=== PATIENT | female | born 2000 | race Caucasian/White ===

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

== ENCOUNTER 2023-01-21 10:28 | Emergency (ER) | payer BC, SELFPAY ==
--- NOTE | ~2023-01-21 | XR_ITS ---
EXAMINATION: XR foot RT min 3V DATE: 01/21/2023 10:56 INDICATION: Right foot pain. TECHNIQUE: 4 views of right foot were obtained. COMPARISON: None. FINDINGS: Bone alignment is normal. No fracture. Joint spaces are normal. IMPRESSION: 1. Normal right foot. Reviewed, dictated and finalized at location A. 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 Normal right foot.
[2023-01-21 10:34] VITALS: BP 121/69; PULSE 86; RESP 20; TEMP 36.7; O2SAT 100
--- NOTE | 2023-01-21 13:01 | ED.LOWEXIN ---
HPI - Extremity Injury (Lower) General Chief Complaint: Extremity Injury, Lower Stated Complaint: foot injury Time Seen by Provider: 01/21/23 12:44 History of Present Illness HPI Narrative: Patient is a 22-year-old female presenting with right foot pain. States that she may have injured it sometime last week. States that she woke up 1 morning and had pain when she stood on it. No swelling or redness. No fevers. No further injuries or complaints. Related Data Home Medications Medication Instructions Recorded Confirmed multivitamin 1 tablet PO DAILY 08/20/19 05/20/22 naproxen sodium 220 mg capsule 220 mg PO BID PRN 08/14/21 05/20/22 (Aleve) Allergies Allergy/AdvReac Type Severity Reaction Status Date / Time meperidine Allergy Severe Swelling Verified 01/21/23 11:15 of Lip/Tongue/Throat MEPERIDINE HCL Allergy Severe Swelling Uncoded 01/21/23 11:15 of Lip/Tongue/Throat Review of Systems Review of Systems: All systems reviewed & are unremarkable except as noted in HPI and below PMFSH Past Medical History Medical History Acid reflux Anxiety Anxiety Arthralgia Arthralgia of hip, left Arthralgia of hip, right Arthralgia of knee, left Arthralgia of knee, right BMI 27.0-27.9,adult Broken finger Chronic right hip pain Depression screening Hip impingement syndrome History of scoliosis Left hip pain Left low back pain Light headedness Scoliosis Scoliosis Wellness examination Surgical History Surgical History H/O hand surgery History of dental surgery Family History Family History Father Diabetes mellitus Family history of hypercholesterolemia Hypertension Mother Diabetes mellitus Family history of hypercholesterolemia Unknown Lung disease Social History Social History Smoking status: Never smoker Alcohol intake: never Substance use: never Lack of Transportation: No Lack of Food: Never True Current Housing: I Have Housing Concerned About Future Housing: No Difficulty Paying Gas/Electric Bills: No Difficulty Paying for Meds: No Education: High School Diploma/GED Living arrangements: with family Occupation/Education: student Gender identity (if verbalized by the patient): Female Sexual Orientation (if Verbalized by the Patient): Straight or Heterosexual Spiritual care concerns: No Exam Narrative: GENERAL: Well-appearing, In no acute distress HEAD: Normocephalic, atraumatic. EYES: PERRLA and EOMI. ENT: grossly unremarkable NECK: Supple. CHEST: No respiratory distress. HEART: Regular rate and rhythm. Normal peripheral pulses. EXTREMITIES: no swelling or redness of the right foot, no tenderness, no bruising, DP pulse 2 + SKIN: Warm, dry NEURO: Alert and oriented x3. PSYCH: Normal mood and affect. Course Vital Signs Vital signs: Vital Signs Temperature 98.0 F 01/21/23 10:34 Pulse Rate 86 01/21/23 10:34 Respiratory Rate 20 01/21/23 10:34 Blood Pressure 121/69 01/21/23 10:34 Pulse Oximetry 100 01/21/23 10:34 Oxygen Delivery Room Air 01/21/23 10:34 Temperature 98.0 F 01/21/23 10:34 Pulse Rate 86 01/21/23 10:34 Respiratory Rate 20 01/21/23 10:34 Blood Pressure 121/69 01/21/23 10:34 Pulse Oximetry 100 01/21/23 10:34 Oxygen Delivery Room Air 01/21/23 10:34 MDM - Extremity Injury (Lower) MDM Narrative Medical decision making narrative: 22-year-old female presenting with right foot pain. Vital stable. Exam is unremarkable. X-ray reveals no acute abnormalities. Advised Tylenol and ibuprofen for pain control. Recommend PCP follow-up. Appropriate return precautions given. Discharged in stable condition. Differential Diagnosis Differenti
== END 2023-01-21 14:02 | disposition home or self-care (01) ==
PROVIDERS: Emergency Provider Emergency Medicine; PCP Family Medicine
DX: M79.671 Pain in right foot (principal); F41.9 Anxiety disorder, unspecified
CPT/HCPCS: 73630; 99283

== ENCOUNTER 2023-04-09 17:13 | Outpatient (CLI) | payer BC, SELFPAY ==
--- NOTE | ~2023-04-09 | XR_ITS ---
EXAMINATION: XR lumbar spine min 4V DATE: 04/09/2023 17:31 INDICATION: Scoliosis, unspecified TECHNIQUE: Anteroposterior, lateral, and bilateral oblique views of the lumbar spine, and cone-down l ateral view of the lumbosacral junction were obtained. COMPARISON: 12/25/2018 FINDINGS: There are 9 degrees a stable lumbar levocurvature. Bone alignment is normal. There is no fr acture. The vertebral body heights and intervertebral disc spaces are normal. IMPRESSION: 1. Stable mild lumbar levocurvature without acute findings. Reviewed, dictated and finalized at location F. 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
--- NOTE | ~2023-04-09 | XR_ITS ---
EXAMINATION: XR thoracic spine 3V DATE: 04/09/2023 17:31 INDICATION: Scoliosis, unspecified TECHNIQUE: AP, lateral and lateral swimmer's views of the thoracic spine were obtained. COMPARISON: 12/25/2018 FINDINGS: No fracture, dislocation, or subluxation. The vertebral body heights, alignment, and interv ertebral disc spaces are normal. There are 5 degrees of thoracic dextrocurvature. The paravertebral s oft tissues are unremarkable. IMPRESSION: 1. Mild thoracic dextrocurvature without acute findings. Reviewed, dictated and finalized at location F. [employer]
== END 2023-04-09 17:14 | disposition home or self-care (01) ==
LOC: ANHIMG 17:14
PROVIDERS: PCP Family Medicine; Visit Provider Physician Assistant
DX: M43.8X4 Other specified deforming dorsopathies, thoracic region (principal); M43.8X6 Other specified deforming dorsopathies, lumbar region
CPT/HCPCS: 72072; 72110

== ENCOUNTER 2023-05-03 18:12 | Emergency (ER) | payer BC, SELFPAY ==
[2023-05-03 18:55] VITALS: BP 105/67; PULSE 110; RESP 20; TEMP 37.7; O2SAT 100
[2023-05-03 19:46] LABS: Influenza A QL RT-PCR Negative (Negative); Influenza B QL RT-PCR Positive (Negative); RSV RNA, RT-PCR Negative (Negative); SARS-CoV-2 RNA PCR Negative (Negative)
--- NOTE | 2023-05-03 20:16 | ED.URI ---
HPI - URI/Sore Throat General Chief Complaint: Upper Respiratory Infection Stated Complaint: URI, headache, congestion Time Seen by Provider: 05/03/23 20:16 Source: patient Mode of arrival: ambulatory Limitations: no limitations History of Present Illness HPI Narrative: This is a 22-year-old female that presents to the emergency department for cold symptoms present over the last 2 days. Reports fevers, myalgias, fatigue, cough, and congestion. Reports positive sick contacts at work. Related Data Home Medications Medication Instructions Recorded Confirmed multivitamin 1 tablet PO DAILY 08/20/19 04/09/23 naproxen sodium 220 mg capsule 220 mg PO BID PRN 08/14/21 04/09/23 (Aleve) Allergies Allergy/AdvReac Type Severity Reaction Status Date / Time meperidine Allergy Severe Swelling Verified 04/09/23 16:30 of Lip/Tongue/Throat MEPERIDINE HCL Allergy Severe Swelling Uncoded 04/09/23 16:30 of Lip/Tongue/Throat Review of Systems Review of Systems: CONSTITUTIONAL: Reports fever ENT: Reports congestion RESPIRATORY: Reports cough All systems reviewed & are unremarkable except as noted in HPI and below PMFSH Past Medical History Medical History Acid reflux Anxiety Anxiety Arthralgia Arthralgia of hip, left Arthralgia of hip, right Arthralgia of knee, left Arthralgia of knee, right BMI 27.0-27.9,adult Broken finger Chronic right hip pain Depression screening Hip impingement syndrome History of scoliosis Left hip pain Left low back pain Light headedness Scoliosis Scoliosis Wellness examination Surgical History Surgical History H/O hand surgery History of dental surgery Family History Family History Father Diabetes mellitus Family history of hypercholesterolemia Hypertension Mother Diabetes mellitus Family history of hypercholesterolemia Unknown Lung disease Social History Social History Smoking status: Never smoker Alcohol intake: never Substance use: never Lack of Transportation: No Lack of Food: Never True Current Housing: I Have Housing Concerned About Future Housing: No Difficulty Paying Gas/Electric Bills: No Difficulty Paying for Meds: No Education: High School Diploma/GED Living arrangements: with family Occupation/Education: student Gender identity (if verbalized by the patient): Female Sexual Orientation (if Verbalized by the Patient): Straight or Heterosexual Spiritual care concerns: No Exam Narrative: GENERAL: Well-appearing, well-nourished, and in no acute distress. HEAD: Normocephalic, atraumatic. EYES: EOMI. ENT: Nares clear, no rhinorrhea or epistaxis. Mucous membranes moist. Oropharynx without tonsillar hypertrophy exudate or other lesions. Bilateral TMs pearly guzman non-bulging NECK: Supple. No adenopathy or masses. CHEST: Clear to auscultation. No respiratory distress. No wheezes rales or rhonchi HEART: Regular rate and rhythm. No murmur heard. Normal peripheral pulses. EXTREMITIES: Normal range of motion. No edema. SKIN: Warm, dry, no rash. NEURO: No focal deficits. Alert and oriented x3. PSYCH: Normal mood and affect Course Course Emergency Course: Patient and family updated on test results and agree with plan of care Vital Signs Vital signs: Vital Signs Temperature 100 F H 05/03/23 18:55 Pulse Rate 110 H 05/03/23 18:55 Respiratory Rate 20 05/03/23 18:55 Blood Pressure 105/67 05/03/23 18:55 Pulse Oximetry 100 05/03/23 18:55 Oxygen Delivery Room Air 05/03/23 18:55 Temperature 100.1 F H 05/03/23 20:17 Pulse Rate 119 H 05/03/23 20:17 Respiratory Rate 20 05/03/23 20:17 Blood Pressure 121/80 05/03/23 20:17 Pulse Oxime
[2023-05-03 20:17] VITALS: BP 121/80; PULSE 119; RESP 20; TEMP 37.8; O2SAT 100
[2023-05-03] MEDS: ACETAMINOPHEN 500 MG TABLET 1000 MG PO (20:23)
== END 2023-05-03 20:34 | disposition home or self-care (01) ==
LOC: ANHED 20:20
PROVIDERS: Emergency Medicine; Emergency Provider Physician Assistant; PCP Family Medicine
DX: J10.1 Influenza due to other identified influenza virus with other respiratory manifestations (principal); Z20.822 Contact with and (suspected) exposure to COVID-19; K21.9 Gastro-esophageal reflux disease without esophagitis
CPT/HCPCS: 87637; 99283; A9270

== ENCOUNTER 2024-07-06 20:18 | Emergency (ER) | payer BC, SELFPAY ==
--- NOTE | ~2024-07-06 | CT_ITS ---
Non-contrast Head CT History: Headache Technique: Axial non-contrast imaging of the brain was performed. Dose reduction technique was used on this scan by utilizing automated exposure control and iterative reconstruction technique. The dose -length product (DLP) was 605.33 mGy-cm. Findings: There is no evidence of intracranial hemorrhage, mass lesion, or acute infarct. Brain par enchyma appears normal. The ventricles and subarachnoid spaces are normal in size. The calvarium ap pears normal. The visualized paranasal sinuses and mastoid air cells are clear. Impression: No significant abnormality seen. Reviewed, dictated and finalized at location . Impression: No significant abnormality seen.
--- NOTE | ~2024-07-06 | XR_ITS ---
XR chest 2V Ordering provider: Mundo Brasher MD History: 23 years Female with . dizzy . Comparison: None. FINDINGS: MEDIASTINUM: The cardiac silhouette is not enlarged. LUNGS: No infiltrates, effusions or pneumothorax. OTHER: No free air under the diaphragm. IMPRESSION: No acute cardiopulmonary pathology. Reviewed, dictated and finalized at location A.
--- OUTSIDE RECORDS SUMMARY | 2024-07-06 20:20 | XMS_ITS | Continuity of Care Document ---
Author Organization [facility] Address [address] [place] [address] Phone Care Team Providers Care Mixed Signal Design Engineer Name Role Phone Tessy GUTHRIE, GURINDER, Robert Unavailable Unavailable Procedures Procedure Date Therapeutic Activities Neuromuscular Re-Ed Therapeutic Exercise Therapeutic Activities Neuromuscular Re-Ed Therapeutic Exercise PT Evaluation Moderate Complexity Therapeutic Activities Advance Directives Directive Yes / No Effective Date File Name No Information Encounters Encounter Description Practice Location Reason(s) For Visit Diagnoses Date Provider Providers Copied on Encounter [facility], [address] [facility], [place], [place], [id number], tel:[phone] [place] No Information 4 Tessy Jones. . [facility] [address], [id number], tel:[phone] [place] No Information 4 Tessy Jones. . Referring Provider: Ej Montes [address] , [place], [address]. tel:[phone] [facility] [address], [place], [place], [id number], tel:[phone] [place] No Information 4 Tessy Jones. . Referring Provider: Ej Montes [address] , [place], [address]. tel:[phone] [facility], [address], [place], [place], [id number], [place] tel:[phone] [place] No Information 4 Tessy Jones. . Referring Provider: Danya Meza [address], [place], [address]. tel:[phone] Family History Family Member Type Diagnosis Age At Onset No Information Payers Payer name Insurance type Covered libertarian ID Authorreymundo enamorado(s) [facility] [id number] Social History Type Description Quantity Date Captured Comments Sex Female Smoking Status No Information Chief Complaint And Reason For Visit No Information Reason For Referral Reason For Referral No Information History Of Present Illness Encounter Date Complaint History Of Prese nt Illness No Information Functional Status Date Functional Assessmen t No Information Instructions Date Instruction Additional Infor mation No Information Assessments Type Assessment Date No Information Patient Care Teams Name Effective Dates (start - stop) Status Members No Information
[2024-07-06 20:47] VITALS: BP 120/74; PULSE 77; RESP 16; TEMP 36.6; O2SAT 100
--- NOTE | 2024-07-06 20:50 | ECG_ITS ---
Test Date: 2024-07-07 00:26:06 Measurements Intervals [place] Rate: 58 P: 38 RI: 161 QRS: 35 QRSD: 99 T: 14 QT: 403 QTc: 399 Interpretive Statements SINUS BRADYCARDIA WITH SINUS ARRHYTHMIA No previous ECG available for comparison Electronically Signed On 07-07-2024 16:38:46 CDT by Carolann Massey M.D.
[2024-07-06 21:51] LABS: BEDSIDEPREGUCG Negative (Negative)
[2024-07-06 21:56] LABS: Basophils Absolute Auto 0.1 K/mm3 (0.0-0.1); Basophils Percent Auto 0.5 % (0.2-1.2); Eosinophils Absolute Auto 0.1 K/mm3 (0-0.3); Eosinophils Percent Auto 1.1 % (0-4.4); Hematocrit 42.1 % (37.0-47.0); Immature Granulocyte Absolute 0.02 K/mm3 (0.00-0.031); Immature Granulocyte Percent A 0.2 % (0-0.5); Lymphocytes Absolute Auto 3.37 K/mm3 (0.9-3.2); Lymphocytes Percent Auto 36.8 % (18.3-44.2); Mean Corpuscular HGB Conc 33.3 g/dl (32-36); Mean Corpuscular Hemoglobin 28.1 pg (26-34); Mean Corpuscular Volume 84.5 fl (80-100); Mean Platelet Volume 9.5 fl (7.4-10.4); Monocytes Absolute Auto 0.5 K/mm3 (0.1-0.6); Monocytes Percent Auto 5.9 % (2.6-8.5); Neutrophils Absolute Auto 5.1 K/mm3 (1.3-6.7); Neutrophils Percent Auto 55.5 % (45.5-73.1); Platelet Count Result 370 k/mm3 (150-375); Red Blood Count 4.98 M/mm3 (4.2-5.4); Red Cell Distribution Width 12.3 % (11.5-14.5); White Blood Count 9.2 K/mm3 (4.5-10.0)
[2024-07-06 22:14] LABS: Alanine Aminotransferase 25 U/L (6-35); Alkaline Phosphatase 68 U/L (38-126); Anion Gap 11 mmol/L (4-12); Aspartate Amino Transferase 27 U/L (14-36); Bilirubin,Total 0.3 mg/dL (0.2-1.3); Blood Urea Nitrogen 21 mg/dL (7-17); Calcium 9.5 mg/dL (8.4-10.2); Carbon Dioxide 26 mmol/L (22-30); Chloride 103 mmol/L (98-107); Estimated CRCL calculation 141 ml/min; Estimated Glomerular Filt Rate > 60; Glucose 93 mg/dL (65-110); Sodium 140 mmol/L (137-145)
[2024-07-07] VITALS (7 sets, daily range): BP systolic 125–138; BP diastolic 69–81; PULSE 71–86; RESP 13–25; TEMP 37.2; O2SAT 97–100
--- OUTSIDE RECORDS SUMMARY | 2024-07-07 | XMS_ITS | Continuity of Care Document ---
Author Organization [facility] Address [address] [place] [address] Phone Care Team Providers Care Director Of Digital Technology Name Role Phone Tessy GUTHRIE, GURINDER, Robert Unavailable Unavailable Procedures Procedure Date Therapeutic Activities Neuromuscular Re-Ed Therapeutic Exercise Therapeutic Activities Neuromuscular Re-Ed Therapeutic Exercise PT Evaluation Moderate Complexity Therapeutic Activities Advance Directives Directive Yes / No Effective Date File Name No Information Encounters Encounter Description Practice Location Reason(s) For Visit Diagnoses Date Provider Providers Copied on Encounter [facility], [address] [facility] [address] [facility], [place], [place], [id number], tel:[phone] [place] No Information 4 Tessy Jones. . [facility] [address], [id number], tel:[phone] [place] No Information 4 Tessy Jones. . Referring Provider: Ej Montes [address] , [place], [address]. tel:[phone] [facility] [address], [place], [place], [id number], tel:[phone] [place] No Information 4 Tessy Jones. . Referring Provider: Ej Montes [address] , [place], [address]. tel:[phone] [facility] [place], [address], [place], [place], [id number], [place] tel:[phone] [place] No Information 4 Tessy Jones. . Referring Provider: Danya Meza [address], [place], [address]. tel:[phone] Family History Family Member Type Diagnosis Age At Onset No Information Payers Payer name Insurance type Covered alliance party ID Authorreymundo enamorado(s) [facility] [id number] Social History Type Description Quantity Date Captured [...]
--- NOTE | 2024-07-07 00:44 | ED_ITS ---
HPI - Dizziness General Chief Complaint: Dizziness Stated Complaint: sweating, dizzy, feeling like fainting Time Seen by Provider: 07/06/24 23:33 History of Present Illness HPI Narrative: Patient is a 23-year-old female who presents to the ER we complaints of an ongoing headache and body heaviness.She reports on Friday she had an episode where she became sweaty, lightheaded, and dizzy. Today patient had a similar episode with headache, sweating, dizziness and decided to come into the ER for evaluation. Patient reports she has had frequent nose bleeds lately the cause headaches immediately afterwards. She endorses a history of seasonal allergies and bulging discs. Patient denies any shortness of breath, recent fevers, cough, sore throat, numbness and tingling, or saddle anesthesia. Related Data Home Medications ?Medication ?Instructions ?Recorded ?Confirmed ?Last Taken ?Type multivitamin 1 tablet PO DAILY 08/20/19 05/26/23 Unknown History naproxen sodium 220 mg capsule 220 mg PO BID PRN 08/14/21 05/26/23 Unknown History (Aleve) Allergies Allergy/AdvReac Type Severity Reaction Status Date / Time meperidine Allergy Severe Swelling Verified 10/17/23 15:16 of Lip/Tongue/Throat MEPERIDINE HCL Allergy Severe Swelling Uncoded 10/17/23 15:16 of Lip/Tongue/Throat Review of Systems 2 Review of Systems: All systems reviewed & are unremarkable except as noted in HPI and below PMFSH Past Medical History Medical History Hip impingement syndrome Scoliosis Light headedness Anxiety Scoliosis Chronic right hip pain Left hip pain BMI 27.0-27.9,adult Depression screening Left low back pain Wellness examination Arthralgia of hip, right Arthralgia of hip, left Arthralgia of knee, right Arthralgia of knee, left Arthralgia Broken finger Acid reflux Anxiety History of scoliosis Surgical History Surgical History H/O hand surgery History of dental surgery Family History Family History Father Diabetes mellitus Family history of hypercholesterolemia Hypertension Mother Diabetes mellitus Family history of hypercholesterolemia Unknown Lung disease Social History Social History Smoking status: Never smoker Alcohol intake: never Substance use: never Lack of Transportation: No Lack of Food: Never True Current Housing: I Have Housing Concerned About Future Housing: No Difficulty Paying Gas/Electric Bills: No Difficulty Paying for Meds: No Education: High School Diploma/GED Living arrangements: with family Occupation/Education: student Gender identity (if verbalized by the patient): Female Sexual Orientation (if Verbalized by the Patient): Straight or Heterosexual Spiritual care concerns: No Exam 2 Narrative: GENERAL: Well appearing, well-nourished, non-toxic, in no acute distress. HEAD: Normocephalic, atraumatic. NECK: Supple. No adenopathy, no masses. RESPIRATORY: Airway patent, respirations nonlabored. Clear to auscultation bilaterally, no rales, rhonchi, wheezing. CARDIOVASCULAR: Regular rate and rhythm without murmurs, rubs, or gallops. Peripheral pulses 2+ and equal bilaterally. ABDOMINAL: Soft, nontender, nondistended, no hepatosplenomegaly. Normoactive BS. MUSCULOSKELETAL: Moves all extremities. Strength/ROM intact without gross deformities. SKIN: Warm, dry, normal color. No rashes. NEURO: A&O X3. Speech clear. Cranial nerves II-XII intact. No ataxic movements. PSYCHIATRIC: Appropriate mood and affect. Normal interaction. Course Vital Signs Vital signs: Vital Signs Temperature 36.6 C 07/06/24 20:47 Pulse Rate 77 07/06/24 20:47 Respiratory Rate 16 07/06/24 20:47 Blood Pressure 120/74 07/06/24 20:47 Pulse Oximetry 100 07/06/24 20:47 Oxygen Delivery Room Air 07/06/24 20:47 Temperature 36.6 C 07/06/24 20:47 Pulse Rate 71 07/07/24 00:47 Respiratory Rate 16 07/06/24 20:47 Blood Pressure 120/74 07/06/24 20:47 Pulse Oximetry 100 07/06/24 20:47 Oxygen Delivery Room Air 07/06/24 20:47 MDM - Dizziness MDM Narrative Medical decision making narrative: Patient is a 23-year-old female who presents to the ER we complaints of an ongoing headache and body heaviness.She reports on Friday she had an episode where she became sweaty, lightheaded, and dizzy. Today patient had a similar episode with headache, sweating, dizziness and decided to come into the ER for evaluation. Patient reports she has had frequent nose bleeds lately the cause headaches immediately afterwards. She endorses a history of seasonal allergies and bulging discs. Patient denies any shortness of breath, recent fevers, cough, sore throat, numbness and tingling, or saddle anesthesia. Labs Ordered: CBC, CMP, COVID/flu/RSV swab, TSH, UA, UDS Imaging Ordered: CT head Medications Ordered: Macrobid p.o. Results: CT head indicates no hemorrhage, hydrocephalus, mass effect, or herniation. Her urinalysis indicates patient has urinary tract infection. Patient's lab work is otherwise unremarkable. Patient's chest x-ray indicates No acute cardiopulmonary pathology. Diagnosis: Urinary tract infection Patient Education/Shared MDM: Results of lab work and imaging shared with patient and her family member. She was given her 1st dose of antibiotics here in the ER. Patient strongly advised to maintain hydration status upon discharge and follow-up with her PCP as soon as possible. She will be discharged home with a prescription for Macrobid and Pyridium. Strict return precautions provided. Patient verbalized understanding and is in agreement with plan. Vital signs stable at time of discharge. All questions answered. Differential Diagnosis Differential diagnosis: Likely orthostatic hypotension, cerebrovascular accident and other (Urinary tract infection, hypothyroidism, COVID/flu/RSV swab) Lab Data Attestation: I reviewed the patient's lab results. 07/06/24 21:48 07/06/24 21:48 Labs: Lab Results 07/06/24 07/06/24 07/07/24 Range/Units 21:48 21:50 01:23 WBC 9.2 (4.5-10.0) K/mm3 RBC 4.98 (4.2-5.4) M/mm3 Hgb 14.0 (12.0-15.0) g/dL Hct 42.1 (37.0-47.0) % MCV 84.5 (80-100) fl MCH 28.1 (26-34) pg MCHC 33.3 (32-36) g/dl RDW 12.3 (11.5-14.5) % Plt Count 370 (150-375) k/mm3 MPV 9.5 (7.4-10.4) fl Immature Gran % (Auto) 0.2 (0-0.5) % Neut % (Auto) 55.5 (45.5-73.1) % Lymph % (Auto) 36.8 (18.3-44.2) % [place] % (Auto) 5.9 (2.6-8.5) % Eos % (Auto) 1.1 (0-4.4) % Baso % (Auto) 0.5 (0.2-1.2) % Lymph # (Auto) 3.37 H (0.9-3.2) K/mm3 [place] # (Auto) 0.5 (0.1-0.6) K/mm3 Eos # (Auto) 0.1 (0-0.3) K/mm3 Baso # (Auto) 0.1 (0.0-0.1) K/mm3 Abs Immat Gran (auto) 0.02 (0.00-0.031) K/mm3 Absolute Neuts (auto) 5.1 (1.3-6.7) K/mm3 Absolute Nucleated RBC 0.000 (0.0-0.012) K/mm3 Nucleated RBC % 0.0 (0.0-0.2) % Sodium 140 (137-145) mmol/L Potassium 4.0 (3.4-5.0) mmol/L Chloride 103 (98-107) mmol/L Carbon Dioxide 26 (22-30) mmol/L Anion Gap 11 (4-12) mmol/L BUN 21 H (7-17) mg/dL Creatinine 0.72 (0.7-1.0) mg/dL Estim Creat Clear Calc 141 ml/min Estimated GFR > 60 (59 - ) Glucose 93 (65-110) mg/dL Calcium 9.5 (8.4-10.2) mg/dL Total Bilirubin 0.3 (0.2-1.3) mg/dL AST 27 (14-36) U/L ALT 25 (6-35) U/L Alkaline Phosphatase 68 (38-126) U/L Total Protein 9.0 H (6.3-8.2) g/dL Albumin 5.0 (3.5-5.1) g/dL TSH (Reflex) Pending Urine Color Yellow (Yellow) Urine Appearance Clear (Clear) Urine pH 5.5 (5.0-9.0) Ur Specific [place] 1.025 (1.001-1.035) Urine Protein Negative (Negative) mg/dL Urine Glucose (UA) Negative (Negative) mg/dL Urine Ketones Negative (Negative) mg/dL Ur Blood (Man) Negative (Negative) Urine Nitrate Negative (Negative) Urine Bilirubin Negative (Negative) Urine Urobilinogen 0.2 (<2.0) mg/dL Leukocyte Esterase Rfl 2+ H (Negative) KIET/UL Urine RBC 0-2 (0-2) /hpf Urine WBC 11-20 H (0-3) /hpf Ur Squamous Epith Cells Few (Few) /hpf Urine Bacteria 1+ H /hpf Urine Casts 0-2 POC Urine HCG, Qual Negative (Negative) Urine Opiates Screen Negative (Negative) Urine Methadone Screen Negative (Negative) Ur Barbiturates Screen Negative (Negative) Ur Phencyclidine Scrn Negative (Negative) Ur Amphetamine Screen Negative (Negative) U Benzodiazepines Scrn Negative (Negative) Urine Cocaine Screen Negative (Negative) U Cannabinoids Screen Pending Influenza A (RT-PCR) Negative (Negative) Influenza B (RT-PCR) Negative (Negative) RSV (RT-PCR) Negative (Negative) SARS-CoV-2 RNA (RT-PCR) Negative (Negative) Imaging Data Attestation: I personally reviewed and interpreted this imaging study as follows: Radiologist's impression: CT head indicates no hemorrhage, hydrocephalus, mass effect, or herniation. Discharge Plan Discharge Clinical Impression: Urinary tract infection, Light headedness Patient Disposition: Home Condition: Stable Instructions: Antibiotic Form, Urinary Tract Infection in Women (ED) Additional Instructions: Please return to the ER with any worsening symptoms. Follow-up with primary care provider as soon as possible. Take all medications as prescribed, including regularly scheduled medications. Patient Language: Tajik Prescriptions: New nitrofurantoin monohyd/m-cryst [Macrobid] 100 mg capsule 100 mg PO Q12H 5 Days Qty: 10 0RF Rx Instructions: must administer with a meal/food phenazopyridine [Pyridium] 200 mg tablet 200 mg PO TID Qty: 6 0RF No Action multivitamin Tablet 1 tablet PO DAILY naproxen sodium [Aleve] 220 mg capsule 220 mg PO BID PRN norethindrone-e.estradiol-iron [ FE 03/01 (28)] 1 mg-20 mcg (21)/75 mg (7) tablet 1 tablet PO DAILY Qty: 84 3RF Follow-up/Referrals: Enma Stock MD [Primary Care Provider] - Stand Alone Forms: Work/School Release IP Time of Disposition: 03:14
[2024-07-07 01:01] LABS: Add Urine Microscopic? YES; Appearance Urine Clear (Clear); Bacteria Urine 1+ /hpf; Bilirubin Urine Negative (Negative); Blood Urine Negative (Negative); Color Urine Yellow (Yellow); Glucose Urine UA Negative (Negative); Ketones Urine Negative (Negative); Leukocyte Esterase Ur 2+ LEU/UL (Negative); Nitrate Urine Negative (Negative); Non Pathogenic Casts 0-2; Protein Urine Negative (Negative); RBC Urine 0-2 /hpf (0-2); Specific Grav Ur 1.025 (1.001-1.035); Squamous Epithelial Cell Urine Few /hpf (Few); Urobilinogen Urine 0.2 mg/dL (<2.0); pH Urine 5.5 (5.0-9.0)
[2024-07-07 01:11] LABS: Barbiturate Screen Urine Negative (Negative); Benzodiazepines Screen Urine Negative (Negative)
[2024-07-07] MEDS: NITROFURANTOIN MONOHYD MACROCR 100 MG CAP PO (01:23)
[2024-07-07 01:28] LABS: Amphetamine Screen Urine Negative (Negative); Cocaine Screen Urine Negative (Negative); Methadone Screen Urine Negative (Negative); Opiate Screen Urine Negative (Negative); Phencyclidine Screen Urine Negative (Negative)
[2024-07-07 02:06] LABS: Influenza A QL RT-PCR Negative (Negative); Influenza B QL RT-PCR Negative (Negative); RSV RNA, RT-PCR Negative (Negative); SARS-CoV-2 RNA PCR Negative (Negative)
[2024-07-07 03:34] LABS: Cannabinoid Screen Urine Negative (Negative)
== END 2024-07-07 03:52 | disposition home or self-care (01) ==
PROVIDERS: Student in an Organized Health Care Education/Training Program; Emergency Provider Registered Nurse; PCP Family Medicine
DX: N39.0 Urinary tract infection, site not specified (principal); R42 Dizziness and giddiness; Z20.822 Contact with and (suspected) exposure to COVID-19
CPT/HCPCS: 36415; 70450; 71046; 80053; 80307; 81001; 81025; 84443; 85025; 87086; 87637; 93005; 99284; A9270